=== PATIENT | male | born 1975 | race Caucasian/White ===

== ENCOUNTER 2023-08-02 23:17 | Emergency (ER) | payer OTHER, SELFPAY ==
[2023-08-02 23:19] VITALS: BP 216/124
[2023-08-03] VITALS: BP 145/90
--- NOTE | 2023-08-03 | ED.GENMED ---
History of Present Illness
General
Chief Complaint: Swelling
Source: patient
Exam Limitations: none
Time Seen by Provider: 08/02/23 23:34
Nursing documentation reviewed up to this point in time: agreed with
Travel History
Have you had any contact with someone who has COVID-19?: No
Do you have any symptoms of coronavirus? Fever > 100 degrees, chills, cough, shortness of breath, sore throat, loss of taste or smell, muscle aches, or headache?: No
History of Present Illness
History of Present Illness:
Pleasant 47-year-old male who presents with lymph node swelling in his left neck. Patient was seen by his primary care provider and a CAT scan was ordered last week. This was done at an outside radiology center. Patient states that the CAT scan
did not give any etiology of the lymph nodes in the neck and chest. Patient states that overnight the lymph nodes have gotten larger. He states that he has no difficulty breathing or swallowing. He has been eating and drinking normally. Denies
chest pain or shortness of breath. Reports no recent fevers or chills. Patient is a smoker.
Past History
Past History
ED Past Medical History: None
ED Past Surgical History: None
Social History
Tobacco: Smoker (1 ppd, past 20 years)
Alcohol: None
Drug: None
Employment: Employed
Review of Systems
Review of Systems
Allergies reviewed?: Yes
All Other Systems: ROS reviewed and negative except as documented in HPI and ROS
Hematologic/Lymphatic: Reports swollen glands and other (Lymphadenopathy in the cervical region)
Phy Exam
General Physical Exam
General Presentation: well appearing and no apparent distress
General Skin: warm and dry
General Habitus: normal
General Mental: alert
General Hydration: appears well hydrated
ENT Exam
ENT Exam: EOMI, pharynx normal, neck supple and normocephalic
Eye Exam
Eye Exam: PERRL, cornea clear and conjunctiva normal
Cardiovascular Exam
Cardiovascular Exam: regular rate/rhythm, no edema, no murmur and normal peripheral pulses
Pulmonary Exam
Pulmonary Exam: lungs clear, no respiratory distress, no rales, no crackles, no rhonchi, no stridor, no wheezing and no cough
Gastrointestinal Exam
Gastrointestinal Exam: normal bowel sounds, non tender, soft, no organomegaly, no pulsatile mass and non distended
Neurological Exam
Neurological Exam: alert, oriented x3, no motor deficits and speech normal
Musculoskeletal Exam
Musculoskeletal Exam: full ROM and no edema
Skin Exam
Skin Exam: normal color, warm/dry, no rash, no petechia and other (Cervical lymphadenopathy)
Psychiatric Exam
Psychiatric Exam: normal mood/affect
Scores
Heart Failure Risk
Heart Failure Risk Score: Not Applicable
Course
Orders/Labs/Results
Orders:
Orders
08/02/23 23:50
CRP [C-Reactive Protein] Urgent
Complete Blood Count/With Diff Urgent
Comprehensive Metabolic Panel Urgent
Sed Rate [Erythrocyte Sed Rate] Urgent
08/03/23 00:01
CR Chest - 2 Views Urgent
Reason For Exam: swelling
CR Soft Tissue Neck Urgent
Reason For Exam: neck swelling
Abnormal Lab Results
08/02/23
23:50
RBC 4.42 L 10^6/uL
(4.70-6.10)
MCH 32.6 H pg
(27.0-31.0)
Absolute Monos (auto) 0.7 H 10^3/uL
(0.1-0.6)
Glucose 113 H mg/dl
(70-99)
08/02/23 23:50
08/02/23 23:50
Vital Signs
Initial and Last Documented VS:
Initial Vital Signs
Temp Pulse Resp BP Pulse Ox
98.9 F 90 18 216/124 100
08/02/23 23:19 08/02/23 23:19 08/02/23 23:19 08/02/23 23:19 08/02/23 23:19
Last Documented Vital Signs
Temp Pulse Resp BP Pulse Ox
98.9 F 82 14 145/90 98
08/02/23 23:19 08/03/23 00:00 08/03/23 00:00 08/03/23 00:00 08/03/23 00:00
*Critical Care Note
Total Time (30-74mins, 75-104mins- exclusive of procedures): Not Applicable
Update Note
Update Note:
08/03/2023 0002 AM: Patient does not have access to his CT scan. At this point I do not feel that a repeat CT scan within 1 week's time for similar symptoms would be prudent. I feel the patient needs to follow-up with his family doctor and get the
next series of testing as defined by his family doctor. He denies any symptomatology stemming from the lymphadenopathy.
08/03/2023 0048 AM: Patient does not want to have a CT scan. He spoke with an aunt, who is a physician and they decided a repeat CT scan is too much radiation. His family doctor is in the process of getting approval for an MRI.
ED Attending Note
-
Portions of this chart may have been created with voice recognition software.� Occasional wrong word or��sound alike� substitutions may have occurred due to the inherent limitations of voice recognition software.
Discharge Plan
Departure
Patient Disposition: Home (Routine Discharge)
Date of Disposition: 08/03/23
Time of Disposition: 00:47
Patient with high blood pressure during this ER visit?: Yes
Discharge Problem:
Acute cervical lymphadenitis
Instructions: Lymphadenitis (DC)
Prescriptions:
No Action
amlodipine 10 mg Tablet
10 mg PO DAILY
lisinopril 10 mg Tablet
10 mg PO DAILY
Eliquis 5 mg Tablet
5 mg PO BID
Referrals:
Christina Granda MD [Family Provider] -
Activity Restrictions/Additional Instructions:
It was a pleasure meeting you and taking part in your care. We hope for your continued healing and wellness.
Please read discharge instructions in their entirety. However, they are for general education and may not describe your exact diagnosis at discharge. Information on your ER visit and medical conditions were discussed with you along with appropriate
follow up information...
If indicated, please take your medications as instructed and indicated on discharge paperwork.
Please schedule a follow up appointment as directed. Call to schedule an appointment
Please return to the emergency department with ANY change in, persisting, or worsening of symptoms. If any of your symptoms do not improve, or persist, or become more severe within 6-12 hours, please return to the emergency department for further
care.
Please return to the emergency department if you develop a headache, neck pain/stiffness, fever greater than 100.4F, chest pain, shortness of breath, persistent nausea, vomiting, slurred speech, difficulty walking, numbness/tingling, weakness, signs
of infection or any other symptoms that are worrisome to you.
or E-mail me directly at [email or web address]
Interventions
Interventions:
*Risk Screen - Suicide Last Done: 08/02/23 23:19
*General Assessment Last Done: 08/02/23 23:49
*Neglect/Abuse Screening Last Done: 08/02/23 23:19
*ED COVID-19 Vaccine History Last Done: 08/02/23 23:27
ED- Neurological Assessment Last Done: 08/02/23 23:52
ED- Pulmonary Assessment Last Done: 08/02/23 23:52
ED-Skin Assessment Last Done: 08/02/23 23:52
[2023-08-03 00:03] LABS: % Basophils 0.9 % (0-2); % Eosinophils 2.7 % (0-6); % Immature Granulocytes 0.3 % (0-0.5); % Lymphocytes 28.2 % (20.5-51.1); % Monocytes 7.5 % (1.7-9.3); % Neutrophils 60.4 % (42.2-75.2); Absolute Basophils 0.1 10^3/uL (0-0.2); Absolute Eosinophils 0.3 10^3/uL (0-0.7); Absolute Lymphocytes 2.6 10^3/uL (1.2-3.4); Absolute Monocytes 0.7 10^3/uL (0.1-0.6); Absolute Neutrophils 5.6 10^3/uL (1.4-6.5); Hematocrit 40.5 % (39.0-52.0); Hemoglobin 14.4 g/dL (13.0-18.0); Mean Corp Hgb Conc. 35.6 g/dL (33.0-37.0); Mean Corpuscular Hgb 32.6 pg (27.0-31.0); Mean Corpuscular Volume 91.6 fL (80.0-94.0); Mean Platelet Volume 10.2 fL (7.4-10.4); Nucleated Red Blood Cells % 0 % (-); Platelet Count 192 10^3/uL (130-400); Red Blood Cell Count 4.42 10^6/uL (4.70-6.10); Red Cell Dist. Width 13.1 % (11.5-14.5); White Blood Cell Count 9.3 10^3/uL (4.8-10.8)
[2023-08-03 00:09] LABS: Erythrocyte Sed Rate 6 mm/hour (0-20)
[2023-08-03 00:17] LABS: ALT (SGPT) 17 U/L (0-50); AST (SGOT) 20 U/L (17-59); Alkaline Phosphatase 61 U/L (38-126); Blood Urea Nitrogen 18 mg/dl (9-20); Calcium 9.6 mg/dl (8.4-10.2); Carbon Dioxide 28 mmol/L (22-30); Chloride 105 mmol/L (98-107); Estimated Creatinine Clearance > 125 ml/min; Glucose 113 mg/dl (70-99); Potassium 3.9 mmol/L (3.5-5.1); Sodium 141 mmol/L (135-145); Total Bilirubin 0.8 mg/dl (0.2-1.3); Total Protein 6.7 g/dl (6.3-8.2); eGFR > 60.00
== END 2023-08-03 00:55 | disposition home or self-care (01) ==
LOC: EMR 23:17
PROVIDERS: EMERGENCY PHYSICIAN Student in an Organized Health Care Education/Training Program; FAMILY PHYSICIAN Student in an Organized Health Care Education/Training Program
DX: L04.0 Acute lymphadenitis of face, head and neck (principal); F17.210 Nicotine dependence, cigarettes, uncomplicated; R03.0 Elevated blood-pressure reading, without diagnosis of hypertension
CPT/HCPCS: 99284; 70360; 71046; 80053; 85025; 85652; 86140

== ENCOUNTER 2025-06-13 19:52 | Inpatient (IN) | payer OTHER, SELFPAY ==
[2025-06-13] VITALS (17 sets, daily range): BP systolic 108–191; BP diastolic 58–128; BMI 32.8
[2025-06-13 18:15] LABS: Hematocrit 43.0 % (39.0-52.0); Hemoglobin 14.7 g/dL (13.0-18.0); Mean Corp Hgb Conc. 34.2 g/dL (33.0-37.0); Mean Corpuscular Volume 90.9 fL (80.0-94.0); Nucleated Red Blood Cells % 0 % (-); Platelet Count 229 10^3/uL (130-400); Red Cell Dist. Width 13.2 % (11.5-14.5)
[2025-06-13 18:31] LABS: ALT (SGPT) 17 U/L (0-50); AST (SGOT) 22 U/L (17-59); Albumin 4.2 g/dl (3.5-5.0); Alkaline Phosphatase 75 U/L (38-126); Blood Urea Nitrogen 14 mg/dl (9-20); Calcium 10.7 mg/dl (8.4-10.2); Carbon Dioxide 26 mmol/L (22-30); Chloride 105 mmol/L (98-107); Glucose 108 mg/dl (70-99); Potassium 3.8 mmol/L (3.5-5.1); Sodium 137 mmol/L (135-145); Total Protein 7.1 g/dl (6.3-8.2); eGFR > 60.00
--- NOTE | 2025-06-13 18:40 | ED.GENMED ---
History of Present Illness
<Giovanni Crowell PA-C - Last Filed: 06/13/25 21:48>
General
Chief Complaint: Chest Pain
Time Seen by Provider: 06/13/25 17:46
History of Present Illness
History of Present Illness:
48-year-old male history of DVT currently on Eliquis as well as hypertension presents to the emergency department for evaluation of chest pain for 5 days. Describes a pressure similar to indigestion in the central chest that worsens with exertion
and resolves rest. No obvious positional or pleuritic nature. No fevers, chills, sweats, coughing. Last dose of Eliquis was this morning. Smokes 2 packs/day.
Past History
<Giovanni Crowell PA-C - Last Filed: 06/13/25 21:48>
Past History
ED Past Medical History: None
ED Past Surgical History: None
Social History
Tobacco: Smoker (1 ppd, past 20 years)
Alcohol: None
Drug: None
Employment: Employed
Review of Systems
<Giovanni Crowell PA-C - Last Filed: 06/13/25 21:48>
Review of Systems
Allergies reviewed?: Yes
All Other Systems: ROS reviewed and negative except as documented in HPI and ROS
Phy Exam
<Giovanni Crowell PA-C - Last Filed: 06/13/25 21:48>
Physical Exam
Physical Exam:
GEN: Well appearing, NAD, WDWN
HEENT: Oral mucosa moist, no scleral icterus
Cardiac: Regular rate and rhythm, subtle systolic murmur
Lung: No respiratory distress, no tachypnea, lungs clear
MSK: No gross deformity or injuries
Skin: Good color, no pallor or jaundice, no rashes
Neuro: AO x3, moves all extremities freely
Psych: Calm, cooperative
Scores
<Giovanni Crowell PA-C - Last Filed: 06/13/25 21:48>
Heart Score for Chest Pain Patients
STEMI patient?: No
History: Moderately Suspicious
ECG: Nonspecific Repolarization
Age: >45 - <65 years
Risk Factors: 1 or 2 Risk Factors
Troponin: >/= 3 x Normal Limit
Heart Score for Chest Pain Patients: 6
Heart Score Risk: 20.3% MACE over next 6 weeks
Course
<Giovanni Crowell PA-C - Last Filed: 06/13/25 21:48>
Orders/Labs/Results
Orders:
Orders
06/13/25 Breakfast
Cholesterol Lowering
At Your Request: Full Participation
Cholesterol Lowering: Sodium, 2 Gram
06/13/25 17:11
EKG [Electrocardiogram (*1)] Urgent
Reason for Study: Chest Pain
EKG- Treatment ONCE
06/13/25 17:53
CR Chest - 2 Views Urgent
Comment:
Reason For Exam: chest pain
06/13/25 18:02
Complete Blood Count/With Diff Urgent
Comprehensive Metabolic Panel Urgent
Troponin I Urgent
06/13/25 18:49
Aspirin Chewable [Low Strength Aspirin] 324 mg PO NOW STA
06/13/25 19:01
Protime/PTT Urgent
06/13/25 19:03
Heparin 4,000 units IV NOW STA
Nicotine [Nicoderm Transdermal] 21 mg TRANSDERM NOW STA
Nursing to Place Non Medication Order As Directed
Physician Order: PTT 6 hours after initial start of Heparin infusion
Above order entered?: Yes
06/13/25 19:15
Heparin 70816 Units/250 ml 25,000 units in 250 ml IV PER PROTOCOL
Weight to be used for heparin protocol in kilograms (kg):: 107.4
Protocol:: Cardiac Tx/Acute Coronary
PTT Goal Range to be used:: PTT 73 to 111 seconds
Order type:: Initial
INITIAL Infusion Dose (UNITS/KG/hr) & then follow protocol:: 15 units/kg/hr
Infusion Dose in UNITS/hr & then follow protocol (UNITS/hr):: 1,500
INFUSION RATE in mL/hr & then follow protocol (mL/hr):: 15
PTT less than or equal to 64 seconds:: Increase rate by 200 units/hr (+ 2 mL/hr)
PTT 64.1 to 72.9 seconds:: Increase rate by 100 units/hr (+ 1 mL/hr)
PTT 73 to 111 seconds:: Target Range. No change in rate.
PTT 111.1 to 130.9 seconds:: Decrease rate by 100 units/hr (- 1 mL/hr)
PTT 131 to 199.9 seconds:: HOLD for 1 hr. Then decrease rate by 200 units/hr (- 2 mL/hr)
PTT greater than or equal to 200 seconds:: HOLD for 2 hrs & Notify Provider. Then decrease by 200 units/hr (-
2 mL/hr)
Lab follow-up:: Each change, PTT q6h until 2 consecutive are therapeutic. Then PTT
daily.
Nitroglycerin 100 mg/250 ml [Nitroglycerin Premix] 100 mg in 250 ml IV PER PROTOCOL
Initial dose in mcg/min, then titrate:: 25
Titrate to keep:: Chest Pain Free
Titrate by mcg/min:: 5 mcg/min, may increase by 10 mcg/min if dose > 20 mcg/min
Frequency of titrations (minutes):: every 3-5 minutes
Maximum dose in mcg/min:: 200
Begin to taper infusion when:: Remained at goal for 2hrs
Taper by mcg/min:: 5 mcg/min
Frequency of taper (minutes) if patient maintains goal:: 30
Taper to off?: Yes
If infusion off & no longer maintaining goal:: Contact Provider
06/13/25 19:18
Metoprolol [Lopressor] 12.5 mg PO NOW STA
06/13/25 19:31
Admit/Transfer Patient As Directed
Co-Sign Provider:
Level of Care: Inpatient admission
Assign to:: IVU
Physician / Group: Josué Dennis
Diagnosis: NSTEMI
Reason for Hospitalization: heparin, nitro
Expected length of stay greater than two midnights?: Yes
ELOS- Estimated Length of Stay in days: 3
I certify the patient meets the requirements for IP care: Yes
06/13/25 19:32
PRN Pain Medication Management As Directed
May give lesser potent ordered pain med per pt: Yes
preference::
Protocol:: Medication orders for pain may be administered in a
manner that supports deferring to patient preference
when the pt is:
- Requesting an ordered lesser potent pain medication.
Least to most potent pain medications are defined
as: acetaminophen < NSAID < tramadol < opioids
(morphine, oxycodone, hydromorphone).
- Requesting a lesser dose of the same medication IF
ORDERED.
- Requesting a less intrusive route of administration
if both routes are prescribed by the provider (PO <
IV).
06/13/25 19:33
Code Status As Directed
Resuscitation Status: Full Code
06/13/25 21:05
Acetaminophen [Tylenol] 650 mg PO Q4HPRN PRN
06/13/25 21:05
CARDIOLOGY CONSULT Routine
Consulting Provider: Denys Elizabeth
Was physician already notified: Yes
Heparin Protocol- PTT Orders As Directed
PTT per Heparin protocol: -Obtain CBC and baseline PTT - if not already collected.
-Obtain PTT 6 hours from start of infusion. Then, every 6 hours until 2 consecutive
PTT's are therapeutic. Then, PTT Daily.
-With each rate change, obtain PTT every 6 hours until 2 consecutive PTT's are
therapeutic. Then, PTT Daily.
Activity As Directed
Activity Level: Out of Bed- Chair
Notify MD As Directed
Notify physician if: PTT is greater than or equal to 200.
Vital Signs As Directed
Frequency: Per unit guidelines
Smoking Cessation Counseling [RESP] Routine
06/14/25 01:30
PTT Urgent
06/14/25 Breakfast
NPO
Allow oral meds: Yes
Allow clear liquids: 4hrs prior to procedure
Comment: may have unrestricted clear liquid up to 4 hrs prior to scheduled procedure
Basic Metabolic Panel IN AM
Complete Blood Count/No Diff IN AM
Hgba1c [Glycohemoglobin (HgbA1c)] IN AM
Lipid Profile [Cardiovascular Evaluation] IN AM
06/14/25 08:00
Amlodipine [Norvasc] 10 mg PO DAILY
Aspirin Chewable [Low Strength Aspirin] 81 mg PO DAILY
Lisinopril [Zestril] 10 mg PO DAILY
Nicotine [Nicoderm Transdermal] 21 mg TRANSDERM DAILY
06/15/25 06:00
Complete Blood Count/No Diff Q2D
Comment: notify provider: Platelet count < 130,000 or decrease by 50% from baseline
06/17/25 06:00
Complete Blood Count/No Diff Q2D
Comment: notify provider: Platelet count < 130,000 or decrease by 50% from baseline
06/19/25 06:00
Complete Blood Count/No Diff Q2D
Comment: notify provider: Platelet count < 130,000 or decrease by 50% from baseline
06/21/25 06:00
Complete Blood Count/No Diff Q2D
Comment: notify provider: Platelet count < 130,000 or decrease by 50% from baseline
06/23/25 06:00
Complete Blood Count/No Diff Q2D
Comment: notify provider: Platelet count < 130,000 or decrease by 50% from baseline
06/25/25 06:00
Complete Blood Count/No Diff Q2D
Comment: notify provider: Platelet count < 130,000 or decrease by 50% from baseline
06/27/25 06:00
Complete Blood Count/No Diff Q2D
Comment: notify provider: Platelet count < 130,000 or decrease by 50% from baseline
06/29/25 06:00
Complete Blood Count/No Diff Q2D
Comment: notify provider: Platelet count < 130,000 or decrease by 50% from baseline
Abnormal Lab Results
06/13/25
18:02
MCH 31.1 H pg
(27.0-31.0)
MPV 10.9 H fL
(7.4-10.4)
Absolute Lymphs (auto) 3.5 H 10^3/uL
(1.2-3.4)
Absolute Monos (auto) 0.7 H 10^3/uL
(0.1-0.6)
Glucose 108 H mg/dl
(70-99)
Calcium 10.7 H mg/dl
(8.4-10.2)
Troponin I 0.412 H* ng/ml
06/13/25 18:02
06/13/25 18:02
Vital Signs
Initial and Last Documented VS:
Initial Vital Signs
Temp Pulse Resp BP Pulse Ox
98.1 F 107 20 191/121 96
06/13/25 17:15 06/13/25 17:15 06/13/25 17:15 06/13/25 17:15 06/13/25 17:15
Last Documented Vital Signs
Temp Pulse Resp BP Pulse Ox
98.1 F 94 13 153/109 96
06/13/25 17:15 06/13/25 20:20 06/13/25 20:20 06/13/25 20:20 06/13/25 20:20
<Alvin Noh, MD - Last Filed: 06/13/25 19:30>
Orders/Labs/Results
Orders:
Orders
06/13/25 Breakfast
Cholesterol Lowering
At Your Request: Full Participation
Cholesterol Lowering: Sodium, 2 Gram
06/13/25 17:11
EKG [Electrocardiogram (*1)] Urgent
Reason for Study: Chest Pain
EKG- Treatment ONCE
06/13/25 17:53
CR Chest - 2 Views Urgent
Comment:
Reason For Exam: chest pain
06/13/25 18:02
Complete Blood Count/With Diff Urgent
Comprehensive Metabolic Panel Urgent
Troponin I Urgent
06/13/25 18:49
Aspirin Chewable [Low Strength Aspirin] 324 mg PO NOW STA
06/13/25 19:01
Protime/PTT Urgent
06/13/25 19:03
Heparin 4,000 units IV NOW STA
Nicotine [Nicoderm Transdermal] 21 mg TRANSDERM NOW STA
Nursing to Place Non Medication Order As Directed
Physician Order: PTT 6 hours after initial start of Heparin infusion
Above order entered?: Yes
06/13/25 19:15
Heparin 66208 Units/250 ml 25,000 units in 250 ml IV PER PROTOCOL
Weight to be used for heparin protocol in kilograms (kg):: 107.4
Protocol:: Cardiac Tx/Acute Coronary
PTT Goal Range to be used:: PTT 73 to 111 seconds
Order type:: Initial
INITIAL Infusion Dose (UNITS/KG/hr) & then follow protocol:: 15 units/kg/hr
Infusion Dose in UNITS/hr & then follow protocol (UNITS/hr):: 1,500
INFUSION RATE in mL/hr & then follow protocol (mL/hr):: 15
PTT less than or equal to 64 seconds:: Increase rate by 200 units/hr (+ 2 mL/hr)
PTT 64.1 to 72.9 seconds:: Increase rate by 100 units/hr (+ 1 mL/hr)
PTT 73 to 111 seconds:: Target Range. No change in rate.
PTT 111.1 to 130.9 seconds:: Decrease rate by 100 units/hr (- 1 mL/hr)
PTT 131 to 199.9 seconds:: HOLD for 1 hr. Then decrease rate by 200 units/hr (- 2 mL/hr)
PTT greater than or equal to 200 seconds:: HOLD for 2 hrs & Notify Provider. Then decrease by 200 units/hr (-
2 mL/hr)
Lab follow-up:: Each change, PTT q6h until 2 consecutive are therapeutic. Then PTT
daily.
Nitroglycerin 100 mg/250 ml [Nitroglycerin Premix] 100 mg in 250 ml IV PER PROTOCOL
Initial dose in mcg/min, then titrate:: 25
Titrate to keep:: Chest Pain Free
Titrate by mcg/min:: 5 mcg/min, may increase by 10 mcg/min if dose > 20 mcg/min
Frequency of titrations (minutes):: every 3-5 minutes
Maximum dose in mcg/min:: 200
Begin to taper infusion when:: Remained at goal for 2hrs
Taper by mcg/min:: 5 mcg/min
Frequency of taper (minutes) if patient maintains goal:: 30
Taper to off?: Yes
If infusion off & no longer maintaining goal:: Contact Provider
06/13/25 19:18
Metoprolol [Lopressor] 12.5 mg PO NOW STA
06/13/25 19:31
Admit/Transfer Patient As Directed
Co-Sign Provider:
Level of Care: Inpatient admission
Assign to:: IVU
Physician / Group: Josué Dennis
Diagnosis: NSTEMI
Reason for Hospitalization: heparin, nitro
Expected length of stay greater than two midnights?: Yes
ELOS- Estimated Length of Stay in days: 3
I certify the patient meets the requirements for IP care: Yes
06/13/25 19:32
PRN Pain Medication Management As Directed
May give lesser potent ordered pain med per pt: Yes
preference::
Protocol:: Medication orders for pain may be administered in a
manner that supports deferring to patient preference
when the pt is:
- Requesting an ordered lesser potent pain medication.
Least to most potent pain medications are defined
as: acetaminophen < NSAID < tramadol < opioids
(morphine, oxycodone, hydromorphone).
- Requesting a lesser dose of the same medication IF
ORDERED.
- Requesting a less intrusive route of administration
if both routes are prescribed by the provider (PO <
IV).
06/13/25 19:33
Code Status As Directed
Resuscitation Status: Full Code
06/13/25 21:05
Acetaminophen [Tylenol] 650 mg PO Q4HPRN PRN
06/13/25 21:05
CARDIOLOGY CONSULT Routine
Consulting Provider: Denys Elizabeth
Was physician already notified: Yes
Heparin Protocol- PTT Orders As Directed
PTT per Heparin protocol: -Obtain CBC and baseline PTT - if not already collected.
-Obtain PTT 6 hours from start of infusion. Then, every 6 hours until 2 consecutive
PTT's are therapeutic. Then, PTT Daily.
-With each rate change, obtain PTT every 6 hours until 2 consecutive PTT's are
therapeutic. Then, PTT Daily.
Activity As Directed
Activity Level: Out of Bed- Chair
Notify MD As Directed
Notify physician if: PTT is greater than or equal to 200.
Vital Signs As Directed
Frequency: Per unit guidelines
Smoking Cessation Counseling [RESP] Routine
06/14/25 01:30
PTT Urgent
06/14/25 Breakfast
NPO
Allow oral meds: Yes
Allow clear liquids: 4hrs prior to procedure
Comment: may have unrestricted clear liquid up to 4 hrs prior to scheduled procedure
Basic Metabolic Panel IN AM
Complete Blood Count/No Diff IN AM
Hgba1c [Glycohemoglobin (HgbA1c)] IN AM
Lipid Profile [Cardiovascular Evaluation] IN AM
06/14/25 08:00
Amlodipine [Norvasc] 10 mg PO DAILY
Aspirin Chewable [Low Strength Aspirin] 81 mg PO DAILY
Lisinopril [Zestril] 10 mg PO DAILY
Nicotine [Nicoderm Transdermal] 21 mg TRANSDERM DAILY
06/15/25 06:00
Complete Blood Count/No Diff Q2D
Comment: notify provider: Platelet count < 130,000 or decrease by 50% from baseline
06/17/25 06:00
Complete Blood Count/No Diff Q2D
Comment: notify provider: Platelet count < 130,000 or decrease by 50% from baseline
06/19/25 06:00
Complete Blood Count/No Diff Q2D
Comment: notify provider: Platelet count < 130,000 or decrease by 50% from baseline
06/21/25 06:00
Complete Blood Count/No Diff Q2D
Comment: notify provider: Platelet count < 130,000 or decrease by 50% from baseline
06/23/25 06:00
Complete Blood Count/No Diff Q2D
Comment: notify provider: Platelet count < 130,000 or decrease by 50% from baseline
06/25/25 06:00
Complete Blood Count/No Diff Q2D
Comment: notify provider: Platelet count < 130,000 or decrease by 50% from baseline
06/27/25 06:00
Complete Blood Count/No Diff Q2D
Comment: notify provider: Platelet count < 130,000 or decrease by 50% from baseline
06/29/25 06:00
Complete Blood Count/No Diff Q2D
Comment: notify provider: Platelet count < 130,000 or decrease by 50% from baseline
Abnormal Lab Results
06/13/25
18:02
MCH 31.1 H pg
(27.0-31.0)
MPV 10.9 H fL
(7.4-10.4)
Absolute Lymphs (auto) 3.5 H 10^3/uL
(1.2-3.4)
Absolute Monos (auto) 0.7 H 10^3/uL
(0.1-0.6)
Glucose 108 H mg/dl
(70-99)
Calcium 10.7 H mg/dl
(8.4-10.2)
Troponin I 0.412 H* ng/ml
06/13/25 18:02
06/13/25 18:02
Vital Signs
Initial and Last Documented VS:
Initial Vital Signs
Temp Pulse Resp BP Pulse Ox
98.1 F 107 20 191/121 96
06/13/25 17:15 06/13/25 17:15 06/13/25 17:15 06/13/25 17:15 06/13/25 17:15
Last Documented Vital Signs
Temp Pulse Resp BP Pulse Ox
98.1 F 94 13 153/109 96
06/13/25 17:15 06/13/25 20:20 06/13/25 20:20 06/13/25 20:20 06/13/25 20:20
<Giovanni Crowell PA-C - Last Filed: 06/13/25 21:48>
MDM/Problems Addressed
MDM/Problems Addressed:
Patient admitted to the hospitalist service for NSTEMI with markedly elevated troponin. He did have some degree of chest discomfort. Concern. Case discussed with cardiology, heparinization in addition to beta-moody.
<Giovanni Crowell PA-C - Last Filed: 06/13/25 21:48>
Comment
Comment:
EKG independently shows normal sinus rhythm with subtle ST depressions but no overt ST changes otherwise
*Pulse Oximetry
SaO2: 96
Oxygen Mode of Delivery: Room air
Patient hypoxic: no
*Critical Care Note
Total Time (30-74mins, 75-104mins- exclusive of procedures): 35 minutes
comment:
Critical care time: 35 minutes
Critical care time was exclusive of: Separately billable procedures, treating other patients, and teaching time
Critical care was necessary to treat or prevent imminent or life-threatening deterioration of the following conditions: NSTEMI
Critical care time spent personally by me on the following activities:
[x] Review of old charts
[x] Obtaining history from patient or surrogate
[x] Ordering and review of the laboratory studies
[x] Ordering and review of radiographic studies
[x] Ordering and performing treatments and interventions
[x] Patient patient's response to treatment
[x] Development of treatment plan with patient or surrogate
ED Attending Note
<Giovanni Crowell PA-C - Last Filed: 06/13/25 21:48>
-
Portions of this chart may have been created with voice recognition software.� Occasional wrong word or��sound alike� substitutions may have occurred due to the inherent limitations of voice recognition software.
<Alvin Matthews MD - Last Filed: 06/13/25 19:30>
ED Attending Note
Patient seen and examined by attending physician: Yes
ED Attending Note:
Patient with history of hypertension and currently on Eliquis secondary to multiple lower leg DVT, daily smoker, presents to ED secondary to 4-day history of intermittent chest pain. Chest pain started 4 days ago with burning sensation in middle of
chest, which has been intermittent. Today, while he was at work, chest pain became more intense, associated with left forearm and hand tingling sensation. Chest pain described as burning/sharp, nonradiating, without any alleviating or exacerbating
factors. Denies back pain. Denies leg pain or swelling. Denies recent illness. Denies previous history of similar symptoms. Patient unaware of any family history of heart disease.
Physical Exam
General: mild distress, not acutely ill. afebrile
Head: nc/at. eomi
Neck: supple. normal range of motion
Heart: s1/s2 regular rate and rhythm. no murmur
Lungs: no acute respiratory distress. clear bilaterally
Abdomen: normal bowel sounds. not tender.
Neuro: alert and oriented x 3. no focal neurological deficits
Skin: no rash
Psychiatric: well kept. interactive and cooperative
Extremities: no edema. no calf tenderness.
History, exam, and blood work consistent with likely non-STEMI. Patient will be admitted for further eval and treatment. Heparin protocol started. Nitroglycerin infusion will be started for blood pressure control as well as patient's ongoing
chest pain.
On-call cardiology notified via [place] text.
Discharge Plan
Departure
Patient Disposition: Admit
Date of Disposition: 06/13/25
Time of Disposition: 19:07
Admit to: IVU
Presentation/result/management discussed w/ accepting MD/DO: Hospitalist
Discharge Problem:
Non-ST elevation ME (NSTEMI)
Interventions
Interventions:
*Risk Screen - Suicide Last Done: 06/13/25 18:04
*General Assessment Last Done: 06/13/25 17:15
*Neglect/Abuse Screening Last Done: 06/13/25 18:04
*ED COVID-19 Vaccine History Last Done: 06/13/25 17:43
*ED Influenza Vaccine History Last Done: 06/13/25 17:43
[facility] Fall Risk Assessment Tool Last Done: 06/13/25 18:04
*Nursing Disposition Last Done: 06/13/25 20:28
ED- Cardiac Assessment Last Done: 06/13/25 18:04
Discharge Date and Time
Discharge Date/Time: 06/13/25 20:29
[2025-06-13 18:48] LABS: Troponin I 0.412 ng/ml
[2025-06-13] MEDS: LOW STRENGTH ASPIRIN 324 MG PO (18:56)
--- NOTE | 2025-06-13 19:09 | HPS.HSE ---
Addendum entered and electronically signed by Josué Dennis MD 06/13/25 20:15:
49 male history of DVT on Eliquis presented with substernal chest discomfort that initially started 45 days ago described as indigestion however progressively got worse. He woke up this morning noted to chest discomfort with associated left finger
numbness that improved on its own however when he went to work started ambulating and doing more strenuous activity and noted that discomfort again and then presented to the hospital. Should be noted that he does smoke 2 packs of cigarettes daily.
He drinks alcohol occasionally.
NSTEMI
Trend troponin to peak
2D echo
N.p.o. after midnight
Heparin drip
Left heart catheterization
Hypertension
Continue antihypertensive
DVT history this was approximately 2 to 10 years ago. Unclear as to why he remained on anticoagulation this may need to be discussed with cardiology as this could potentially affect ongoing DAPT therapy if PCI completed
Continue apixaban 5 mg p.o. twice daily
Original Note:
Family Physician
-
Family Physician: Christina Granda MD
Chief Complaint
-
Chest Pain
History of Present Illness
Patient is a 49 y/o male past medical history of DVT and hypertension who presents with chest pain. Patient reports onset of pain about 4-5 days ago described as a sharp pain associated with tingling down the left arm. Patient reports pain is worse
with exertion and improves with rest. He denies prior history of heart attack. He admits to smoking about 2 packs of cigarettes per day.
Medical History
Past Medical History
Past Medical History: Reports Other
Additional Past Medical History:
Essential Hypertension
DVT
Past Surgical History: Reports None
Social History
Tobacco: Smoker (2 PPD)
Alcohol: Occasional
Family History
Family History: Other (Unknown; Patient denies any known history of heart disease but states he does not know his father)
Allergies / Home Medications
Allergies reflects when Allergies were last updated in [facility].
Home Medications with original date entered in [facility]
Allergy/Medication List:
Allergies
Allergy/AdvReac Type Severity Reaction Status Date / Time
Penicillins Allergy Unknown Verified 06/13/25 17:15
Home Medications
amlodipine 10 mg tablet 10 mg PO DAILY 08/02/23
apixaban 5 mg tablet (Eliquis) 5 mg PO BID 08/02/23
lisinopril 10 mg tablet 10 mg PO DAILY 08/02/23
Review of Systems
-
A 12 point ROS was completed and negative except as noted: Yes
Constitutional: Denies Fever
Respiratory: Denies Cough or Trouble Breathing
Cardiac: Reports Chest Pain; Denies Palpitations
Physical Exam
Vital Signs
Vital Signs
Temp Pulse Resp BP Pulse Ox
98.1 F 79 14 147/94 97
06/13/25 17:15 06/13/25 18:45 06/13/25 18:45 06/13/25 18:42 06/13/25 18:45
Physical Exam
General: Comfortable and Conversant
HEENT: Anicteric and Moist mucous membranes
Respiratory: Clear and Non Labored Respirations
Cardiac: S1/S2 and Regular Rhythm
GI: Soft and Non Distended
Rectal: Deferred by Provider
Musculoskeletal: No Clubbing, No Cyanosis and No Edema
Skin: Warm and Dry
Neuro: Awake, Alert, Oriented and Nonfocal/grossly intact
Psych: Calm
Laboratory Results
-
06/13/25 18:02
06/13/25 18:02
Laboratory Results
Total Bilirubin 0.4 mg/dl (0.2-1.3) 06/13/25 18:02
AST 22 U/L (17-59) 06/13/25 18:02
ALT 17 U/L (0-50) 06/13/25 18:02
Alkaline Phosphatase 75 U/L (38-126) 06/13/25 18:02
Troponin I 0.412 ng/ml H* 06/13/25 18:02
Data Reviewed
-
Lab Data: Labs Reviewed by me
Impression/Plan
-
NSTEMI
-Consult Cardiology
-Patient received aspirin 324mg in ED - Continue 81mg Daily
-Continue heparin drip
-Continue nitro drip
-NPO after midnight for likely cardiac cath in AM
-Check Lipid Panel and HgbA1c
Essential Hypertension, BP uncontrolled
-Continue amlodipine and lisinopril
-Continue nitro drip
Hx DVT
-Patient reports lower extremity DVT 2 years ago which he reports was unprovoked
-Hold Eliquis while on heparin drip
Tobacco Use Disorder / Nicotine Dependence
-Continue nicotine patch
-Encourage smoking cessation
Code Status: Full Code
[2025-06-13] MEDS: NITROGLYCERIN PREMIX 250 IV (19:17)
[2025-06-13 19:19] LABS: INR 1.02; PT 13.5 Sec (11.4-14.6)
[2025-06-13 19:20] LABS: APTT 25.4 Sec (23.4-35.0)
[2025-06-13] MEDS: HEPARIN 4000 UNITS IV (19:29)
[2025-06-13] MEDS: HEPARIN 25000 UNITS/250 ML IV (19:30)
[2025-06-13] MEDS: NICODERM TRANSDERMAL 21 MG TRANSDERM (19:39)
[2025-06-13] MEDS: LOPRESSOR 12.5 MG PO (19:40)
[2025-06-13] MEDS: XANAX 0.25 MG PO (22:59)
[2025-06-14] VITALS (11 sets, daily range): BP systolic 107–149; BP diastolic 64–103
[2025-06-14] MEDS: TYLENOL 650 MG PO (00:56)
--- NOTE | 2025-06-14 01:00 | PTCARENOTE ---
Pt rec'd from ED via stretcher at 2034. Adm hx taken and recorded. Heparin and ntg gtt infusing via right arm. CP 1 out of 10 dull. Pt educated on npo status after mn for cath in am. medicated with Tylenol at this time for c/o h/a 4 out of 10. Sinus
nahomy on telemetry
[2025-06-14 01:21] LABS: APTT 51.1 Sec (23.4-35.0)
[2025-06-14 01:32] LABS: Troponin I 2.070 ng/ml
--- NOTE | 2025-06-14 07:39 | CON.CAR ---
Addendum entered and electronically signed by Dena Vale MD 06/14/25 10:55:
I saw and examined the patient.
The Water Registrar's note was reviewed and I agree with the note.
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
ongoing chest discomfort progressively worsening found to have a troponin of 2 concerning for a NSTEMI. No family history of premature coronary artery disease. 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 In regards to the DVTs undergone previous
hematologic workup with no clear explanation for an unprovoked DVT and therefore plan is for lifelong Eliquis. His last dose of Eliquis was yesterday morning. He has now been chest pain-free on IV heparin and 25 mcg of IV nitroglycerin. No
bleeding complications while on the Eliquis.
Lab work and vital signs reviewed. On exam patient is well-appearing, in no acute distress, awake, alert and oriented x 3, somewhat anxious, regular rate, normal S1 and S2, no murmurs, rubs or gallops, mild JVD, lungs are clear to auscultation
bilaterally, abdomen is soft, nontender, nondistended with active bowel sounds, warm extremities without significant edema, morbid obesity is noted
Recommendations:
1. In the setting of an acute coronary syndrome/NSTEMI, we discussed the role of heart catheterization reviewing the risk and benefits in significant detail to rule out obstructive CAD. Patient is agreeable so the plan is to move forward with this.
2. In the interim we will continue with optimization of medical therapy from an ACS standpoint ensuring that he is on a daily baby aspirin, high intensity statin, beta-moody as tolerated, continuing home amlodipine and lisinopril for hypertension.
3. Echocardiogram was completed this morning and reviewed by myself which showed normal biventricular function without significant valvular abnormalities or clear wall motion abnormalities..
4. Risk factor assessment including lipids and hemoglobin A1c with aggressive management.
5. Very strongly emphasized importance of complete smoking cessation.
6. In general recommended that he focus on a high-fiber Mediterranean type diet and staying active.
7. Further recommendations based on heart catheterization and probable referral for outpatient cardiac rehab
Dena Vale MD, [facility], [facility]
[phone]
Original Note:
Consultation
Consultation Request
Date/Time Consultation Performed: 06/14/25
Requesting Provider: Dr. Alec Dennis
Performing Provider: Sherry Palmer PA-C for Dr. Vale
Reason for Consultation: NSTEMI
Medical History
-
Chief Complaint: CP
History of Present Illness:
Patient is a 49 yo M with PMH of HTN, DVT on chronic eliquis who presented to [facility] for evaluation of chest discomfort which he has noted over the last 4-5 days. He reports it is located in central chest, however then had occasional tingling into L
arm/hand. No radiation otherwise. No SOB, lightheadedness, N/V. It has been fairly constant, however does believe that it is relieved with resting at times, worsened with exertion. He continues to smoke 2 ppd. He is currently CP free on IV heparin
and IV nitro. Trop elevated at 2. Cardiology consulted for evaluation. Last dose of eliquis was 12/9 AM.
PMH:
HTN
History of DVT on eliquis
Smoker
Past Medical History
Past Medical History: Other (in HPI)
Social History
Tobacco: Smoker (2 ppd)
Alcohol: None
Drug: None
Living: With Roomate
Employment: Employed
Family History
Family History: Reviewed & Not Pertinent
Allergies / Home Medications
Allergy/AdvReac Type Severity Reaction Status Date / Time
Penicillins Allergy Unknown Verified 06/13/25 17:15
�Medication �Instructions �Recorded �Confirmed �Type
amlodipine 10 mg tablet 10 mg PO DAILY 08/02/23 06/13/25 History
apixaban 5 mg tablet (Eliquis) 5 mg PO BID 08/02/23 06/13/25 History
lisinopril 10 mg tablet 10 mg PO DAILY 08/02/23 06/13/25 History
Review of Systems
-
History Source: Patient
All other systems: Negative unless noted
Physical Exam
Vital Signs
Temp Pulse Resp BP Pulse Ox
98.8 F 58 20 107/64 94
06/13/25 22:25 06/14/25 06:30 06/13/25 22:25 06/14/25 00:47 06/14/25 00:50
Lab Results
Troponin I 2.070 ng/ml H* D 06/14/25 00:53
Physical Exam
General: No Apparent Distress and Comfortable
HEENT: Normocephalic, Anicteric and Moist Mucous Membranes
Respiratory: Clear and Non Labored Respirations
Cardiac: S1/S2 and Regular Rhythm
GI: Soft, Non Tender, Non Distended and Normal Bowel Sounds
Musculoskeletal: No Clubbing, No Cyanosis and No Edema
Skin: Warm and Dry
Neuro: AO x 3
Impression / Plan
-
Primary Director Quality Systems: none prior to admission
Assessment:
Presentation with CP
NSTEMI
HTN
History of DVT on eliquis
Smoker
ECHO 06/14/25: pending
Plan:
-Patient presented with several days of chest discomfort. has ruled in for NSTEMI overnight, trop up to 2, trend to peak
-EKG SR with NSSTS
-CXR without acute abnormalities
-presently chest pain free on IV heparin and IV nitro gtt @25.
-NPO for cardiac cath today. reviewed procedure with patient in detail and he is agreeable to proceed. last dose of eliquis was 12/9AM.
-check urgent echo
-continue asa
-continues on OP norvasc, lisinopril.
-CVE pending. add lipitor 40mg QPM
-advised smoking cessation
-further recommendations based on results of echo and cath
-d/w nursing
Data Reviewed
-
EKG: Tracing Personally Visualized and interpreted
Radiology: Report Reviewed by me
Labs: Labs Reviewed by me
Old Records: Reviewed
[2025-06-14 07:57] LABS: Hematocrit 40.2 % (39.0-52.0); Hemoglobin 13.6 g/dL (13.0-18.0); Mean Corp Hgb Conc. 33.8 g/dL (33.0-37.0); Mean Corpuscular Volume 90.5 fL (80.0-94.0); Platelet Count 196 10^3/uL (130-400); Red Cell Dist. Width 13.3 % (11.5-14.5)
[2025-06-14 08:07] LABS: APTT 44.5 Sec (23.4-35.0)
[2025-06-14 08:21] LABS: Troponin I 2.210 ng/ml
[2025-06-14] MEDS: LOW STRENGTH ASPIRIN 81 MG PO (08:23)
[2025-06-14] MEDS: NICODERM TRANSDERMAL 21 MG TRANSDERM (08:23)
[2025-06-14] MEDS: NORVASC 10 MG PO (08:23)
[2025-06-14] MEDS: ZESTRIL 10 MG PO (08:23)
[2025-06-14 08:34] LABS: Blood Urea Nitrogen 14 mg/dl (9-20); Calcium 9.0 mg/dl (8.4-10.2); Carbon Dioxide 24 mmol/L (22-30); Chloride 108 mmol/L (98-107); Estimated Creatinine Clearance > 125 ml/min; Glucose 101 mg/dl (70-99); HDL Cholesterol 42 mg/dl; LDL Cholesterol, Calculated 135 mg/dl; Potassium 4.2 mmol/L (3.5-5.1); Sodium 137 mmol/L (135-145); Very Low Density Lipoprotein 20 mg/dl (0-30); eGFR > 60.00
--- NOTE | 2025-06-14 09:03 | W.PN.HOSP.TC ---
Today's Communication/Plan
-
.
Assessment / Plan
Assessment / Plan
Physical Exam
General: Comfortable and Conversant
HEENT: Anicteric and Moist mucous membranes
Respiratory: Clear and Non Labored Respirations
Cardiac: S1/S2 and Regular Rhythm
GI: Soft and Non Distended
Rectal: Deferred by Provider
Musculoskeletal: No Clubbing, No Cyanosis and No Edema
Skin: Warm and Dry
Neuro: Awake, Alert, Oriented and Nonfocal/grossly intact
Psych: Calm
NSTEMI
No chest pain over night
-Patient received aspirin 324mg in ED - Continue 81mg Daily. EKG no acute ischemic changes.
-Continue heparin drip
-Continue nitro drip
-NPO after midnight for likely cardiac cath today
- LDL 135/ HDL 42/ Total cholesterol 197/ TG 101,
Started on statin therapy
- HgbA1c
- Appreciate cardiology help
Essential Hypertension, BP uncontrolled
-Continue amlodipine and lisinopril
-Continue nitro drip
Leukocytosis, no fever or cough
CXR: No evidence of active cardiopulmonary disease.
c/w reactive
Hx DVT
-Patient reports lower extremity DVT 2 years ago which he reports was unprovoked
-Hold Eliquis while on heparin drip
Tobacco Use Disorder / Nicotine Dependence
-Continue nicotine patch
-Encourage smoking cessation
Code Status: Full Code
Total time spent to see the patient, examined the patient, reviewed data and lab result, discuss treatment plan with patient, cardiology, nursing staff around 55 minutes
Anticipated Discharge: 24 - 48 hours
Subjective/Interval History
-
Date of Service: June 14, 2025
no chest pin
no sob
Objective Data
-
Labs:
Laboratory Results
06/14/25 06/14/25 06/14/25
00:53 07:45 14:30
WBC 11.2 H
Hgb 13.6
Hct 40.2
Plt Count 196
APTT 51.1 H 44.5 H Pending
Sodium 137
Potassium 4.2
Chloride 108 H
Carbon Dioxide 24
BUN 14
Creatinine 0.8
Glucose 101 H
Calcium 9.0 D
Vital Signs:
Vital Signs
Temp Pulse Resp BP Pulse Ox
98.1 F 84 20 130/82 97
06/14/25 07:47 06/14/25 08:23 06/14/25 07:47 06/14/25 08:23 06/14/25 07:47
I&O
06/13/25 06/14/25 06/15/25
06:59 06:59 06:59
Intake Total 240 / 240
Balance 240 / 240
[2025-06-14] MEDS: HEPARIN 25000 UNITS/250 ML IV (09:26)
--- NOTE | 2025-06-14 10:10 | PTCARENOTE ---
Pt is AOx3, no complaints of pain or discomfort. 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 Pt went for ECHO this AM. Heparin gtt and nitro gtt infusing per orders. Independent OOB. Call zuleta within reach.
[2025-06-14 11:28] LABS: ACT-LR - POC 224 Seconds (116-155)
[2025-06-14 11:38] LABS: ACT-LR - POC 274 Seconds (116-155)
[2025-06-14 11:53] LABS: ACT-LR - POC 327 Seconds (116-155)
[2025-06-14 12:09] LABS: ACT-LR - POC 258 Seconds (116-155)
--- NOTE | 2025-06-14 12:37 | PTCARENOTE ---
received pt back from produce laborer. no complaints of pain or discomfort. Right radial site CDI, + pulse. VSS. Pt educated on restrictions and expected OOB time. Call zuleta within reach.
--- NOTE | 2025-06-14 12:37 | ITS.CL.CATH ---
Pumper Gauger - Catheterization
Cardiac Catheterization
Procedure Report:
LEFT HEART CATHETERIZATION
Date of Procedure: June 14, 2025
Referring: Dena Vale MD, [facility], [facility]
PROCEDURES:
1. Left heart catheterization, coronary angiogram.
2. Moderate sedation.
3. Successful percutaneous coronary artery intervention of a 90% hazy mid left circumflex stenosis with one 3.0 x 18 mm Medtronic Artur frontier drug-eluting stent, postdilated using IVUS guidance with a 3.25 x 15 mm NC balloon at high pressures
with an excellent angiographic result.
4. Intravascular ultrasound (IVUS)
INDICATION: NSTEMI
ACCESS: Right radial artery, 6Fr. sheath, under US guidance.
HEMODYNAMICS : (mmHg)
AO (s/d) : 131/79
LVEDP : 20
CORONARY FINDINGS
Dominance: Right
Left Main Trunk (LMT): Large caliber vessel that gives rise to the LAD and LCx branches and is free of angiographic disease.
Left Anterior Descending Artery (LAD): Large caliber vessel that gives off 2 major diagonal branches as it courses along the anterior inter-ventricular groove before wrapping around the cardiac apex. There is mild diffuse atherosclerotic plaque.
Left Circumflex Artery (LCx): Large caliber vessel that gives off 1 major obtuse marginal (OM) branch as it courses along the atrio-ventricular (AV) groove. Mid left circumflex just prior to the takeoff of a large left posterolateral branch has a
hazy 90% stenosis which was intervened upon as noted below. Otherwise there is mild diffuse atherosclerotic plaque. OM1 is a very small caliber vessel with ostial 30% stenosis
Right Coronary Artery (RCA): Large caliber dominant vessel that gives rise to the posterior descending artery (RPDA) and postero-lateral ventricular (RPLV) branches distally. There is mild diffuse atherosclerotic plaque
CORONARY INTERVENTION: In the setting of an NSTEMI decision was made to proceed with the likely culprit lesion which is still 90% hazy mid left circumflex stenosis. Additional heparin was given to maintain a therapeutic ACT throughout the case.
Given poor guide support with a 6 [place] EBU 3.5 guide especially due to a possible bovine arch, we switched this out with a 6 [place] EBU 3.75 guide which was still somewhat difficult to selectively engage but we eventually succeeded. Through this
we used a 190 cm 0.014' run-through coronary wire which we carefully navigated across the mid left circumflex stenosis into the distal vessel. We predilated using a 2.5 x 15 mm semicompliant balloon with full expansion. Patient did report
reproduction of his chest discomfort symptoms from the last couple of days while we were working here. We subsequently stented the lesion using a 3.5 x 18 mm Medtronic Artur frontier drug-eluting stent which was postdilated using IVUS guidance with
a 3.25 x 15 mm NC balloon at 18 jona with an excellent angiographic and IVUS based result. Patient tolerated the procedure well and was chest pain free at the end of the case. No acute complications. Given need for lifelong Eliquis due to an
unprovoked DVT history, decision was made despite the NSTEMI to load with 600 mg of Plavix.
SEDATION: 47 minutes of procedural sedation was utilized. IV Midazolam and IV Fentanyl were administered. An independent medical diagnostic radiographer was present to assist with and help manage the patient's level of consciousness and physiologic status.
RADIATION SUMMARY: Fluoro Time (min): 8.0, Dose (mGy): 1022.56, DAP (Gy.cm2) : 66.8
Closure Device: There were no immediate intra-procedural complications. The sheath was pulled in the slab tripper and a vascular-band applied to the right wrist for radial artery hemostasis using the patent hemostasis technique.
CONCLUSIONS
1. Successful percutaneous coronary artery intervention of a 90% hazy mid left circumflex stenosis with one 3.0 x 18 mm Medtronic Artur frontier drug-eluting stent, postdilated using IVUS guidance with a 3.25 x 15 mm NC balloon at high pressures with
an excellent angiographic result.
2. LVEDP of 20 mmHg
RECOMMENDATIONS
1. Wean radial band per protocol. Monitor right hand perfusion and for bleeding from the radial site following removal of the vascular-band following trans-radial access.
2. Continue aggressive medical therapy and risk factor modification for secondary CAD prevention.
3. Given need for lifelong Eliquis due to an unprovoked DVT history, decision was made despite the NSTEMI to load with 600 mg of Plavix. Plan will be to do triple therapy with daily baby aspirin, 75 mg of Plavix and Eliquis which will be started
tonight for 1 week and at that point aspirin can be discontinued with plan to continue Eliquis and Plavix 75 mg daily.
4. Hydrate with normal saline to mitigate the risk of contrast-induced acute kidney injury.
5. Referral for outpatient cardiac rehab.
6. Follow-up with outpatient cardiology after discharge
Dena Vale MD, FACC, [facility]
[2025-06-14 12:59] LABS: Troponin I 1.770 ng/ml
--- NOTE | 2025-06-14 13:16 | CM ---
Reviewed chart. Met with Mr. Walker to review discharge plans. He states he rents a house with roommates. He states he resides in a three story home without any steps to enter. He states his bedroom is on third third floor and he has two flight
of steps to get to his bedroom. He states his full bathroom is on the second floor. He states prior to admission he was independent in ambulation and adls. He states he does not have any DME in the home. He states he has a prescription plan and
uses [facility]. Medical work-up in progress. The discharge plan is to return home with his roommates when medically stable.
[2025-06-14] MEDS: LIPITOR 40 MG PO (18:01)
[2025-06-14] MEDS: ELIQUIS 5 MG PO (20:03)
[2025-06-14] MEDS: REMOVE NICOTINE PATCH 1 PATCH REMOVE (22:26)
--- NOTE | 2025-06-14 23:45 | PTCARENOTE ---
Addendum entered by Pauline Fabian RN 06/15/25 02:37:
Saved VS in work list from dayshi, 1400 on.
Original Note:
Received pt at change of shift resting in bed. SR on tele, HR 60's-80's. pt denies any CP or SOB at this time. R radial site C/D/I, no bleeding or hematoma noted at this time. Educated pt on restrictions with R wrist, verbalizes understanding.
Encouraged pt to call RN w/ any questions/concerns. Call zuleta within reach.
[2025-06-15 04:49] VITALS: BP 146/97
[2025-06-15 06:13] LABS: Blood Urea Nitrogen 11 mg/dl (9-20); Calcium 8.9 mg/dl (8.4-10.2); Carbon Dioxide 24 mmol/L (22-30); Chloride 109 mmol/L (98-107); Estimated Creatinine Clearance > 125 ml/min; Glucose 96 mg/dl (70-99); Potassium 4.2 mmol/L (3.5-5.1); Sodium 137 mmol/L (135-145); eGFR > 60.00
[2025-06-15 07:20] VITALS: BP 159/77
[2025-06-15] MEDS: ELIQUIS 5 MG PO (08:29)
[2025-06-15] MEDS: PLAVIX 75 MG PO (08:29)
[2025-06-15] MEDS: NORVASC 10 MG PO (08:29)
[2025-06-15] MEDS: ZESTRIL 10 MG PO (08:29)
[2025-06-15] MEDS: NICODERM TRANSDERMAL 21 MG TRANSDERM (08:29)
[2025-06-15] MEDS: TOPROL XL 25 MG PO (08:29)
[2025-06-15] MEDS: LOW STRENGTH ASPIRIN 81 MG PO (08:30)
--- NOTE | 2025-06-15 08:46 | W.PN.CARDCBS ---
Addendum entered and electronically signed by Dena Vale MD 06/15/25 23:02:
I saw and examined the patient.
The Family Medicine Physician's note was reviewed and I agree with the note.
Comment: Doing well overnight. No acute issues. No further CP or SOB. No issues at radial access site.
Vitals and labs reviewed. on exam, pt is NAD, A+Ox3, RR, Normal S1 an S2. no m/r/g, CTAB, Abd soft, NT, ND +BS, warm ext.
right radial site with dressing in place, no hematoma or bruit.
Reccomendations:
1. Cont Toprol XL 12.5mg daily with tele showing short runs of NSVT and relative bradycardia.
2. Cont home HTN meds.
3. ASA, plavix and eliquis x 1wk, then plavix and eliquis given NSTEMI and s/p LCX PCI.
4. Echo with overall preserved LC fxn, no significant valve issues.
5. Aggressive secondary CV risk factor management.
6. Outpt cardiac rehab referral if feasible with his work schedule.
7. Outpt cards follow up will be arranged.
8. STOP SMOKING
9. Heart healthy high fiber Mediterranean diet.
Stable for discharge from cardiac standpoint.
Dena Vale MD, [facility], [facility]
Original Note:
Today's Communication / Plan
-
Plan for aspirin, Plavix, Eliquis for 1 week then stop aspirin and continue Plavix, Eliquis
PPI added
Decrease Toprol to 12.5 mg daily given relative bradycardia
Continue outpatient Norvasc, lisinopril
Statin new this admission
Cardiac rehab
Outpatient cardiac follow-up arranged
Ambulate, and if feeling well okay for discharge later today
Impression / Plan
-
Primary Warehouse Administrative Assistant: none prior to admission
Assessment:
Presentation with CP
NSTEMI s/p circ PCI 06/14/25
HTN
History of DVT on eliquis
Smoker
ECHO 06/14/25: EF 58%, aortic sclerosis, moderate MAC, mild MR
Plan:
-Patient presented with several days of chest discomfort. ruled in for NSTEMI
-peak trop 2.2
-s/p cath with circ PCI 06/14/25
-R wrist site c/d/i
-currently on triple therapy with asa, plavix, eliquis. plan to continue for 1 week then stop asa and continue plavix, eliquis
-in SR/SB on review of tele overnight, will reduce Toprol dose to 12.5 mg daily
-Continue outpatient Norvasc, lisinopril
-Results of echocardiogram reviewed with patient 06/14
-LDL 135. Lipitor 40 mg every afternoon added this admission
-Activity restrictions reviewed
-Again discussed importance of smoking cessation
-Cardiac rehab
-Okay for discharge to home later today
-Outpatient cardiac follow-up arranged
Progress Note - Warehouse Administrative Assistant
Subjective
Date of Service: June 15, 2025
No issues overnight. Mild right wrist soreness
Objective
Labs:
06/14/25 07:45
06/15/25 04:58
Labs
Hgb 13.6 g/dL (13.0-18.0) 06/14/25 07:45
Hct 40.2 % (39.0-52.0) 06/14/25 07:45
Plt Count 196 10^3/uL (130-400) 06/14/25 07:45
PT 13.5 Sec (11.4-14.6) 06/13/25 19:01
INR 1.02 06/13/25 19:01
APTT Cancelled 06/14/25 14:30
Sodium 137 mmol/L (135-145) 06/15/25 04:58
Potassium 4.2 mmol/L (3.5-5.1) 06/15/25 04:58
BUN 11 mg/dl (9-20) 06/15/25 04:58
Creatinine 0.7 mg/dL (0.7-1.3) 06/15/25 04:58
Glucose 96 mg/dl (70-99) 06/15/25 04:58
Troponins
06/13/25 06/13/25 06/14/25
18:02 22:00 00:53
Troponin I 0.412 H* Cancelled 2.070 H* D
06/14/25 06/14/25 06/14/25
07:45 12:00 18:00
Troponin I 2.210 H* 1.770 H* Cancelled
Vital Signs and I&O:
Vital Signs
Temp Pulse Resp BP Pulse Ox
97.8 F 75 20 159/77 97
06/15/25 07:20 06/15/25 08:29 06/15/25 07:20 06/15/25 08:29 06/15/25 07:20
Vital Signs
Temp Pulse Resp BP Pulse Ox
97.8 F 75 20 159/77 97
06/15/25 07:20 06/15/25 08:29 06/15/25 07:20 06/15/25 08:29 06/15/25 07:20
Intake & Output
06/13/25 06/14/25 06/15/25 06/16/25
07:59 07:59 07:59 07:59
Intake Total 240 / 240 720 / 720
Output Total 1100 / 1100
Balance 240 / 240 -380 / -380
Physical Exam
Physical Exam
GEN: No distress, awake, alert, oriented x3
HEENT: supple, anicteric, mmm, EOMI
LUNGS: CTA bilaterally, no wheezes/rales
CV: Reg, S1/S2, 1/6 murmur
ABD: soft, BS+, NT/ND
EXT: No cyanosis, clubbing, edema
NEURO: Gross non-focal
SKIN: Warm, pink, dry. No rash. Right wrist site clean dry and intact
--- NOTE | 2025-06-15 09:03 | W.PN.HOSP.TC ---
Today's Communication/Plan
-
dc if ok with cardiology
Assessment / Plan
Assessment / Plan
Physical Exam
General: Comfortable and Conversant
HEENT: Anicteric and Moist mucous membranes
Respiratory: Clear and Non Labored Respirations
Cardiac: S1/S2 and Regular Rhythm
GI: Soft and Non Distended
Rectal: Deferred by Provider
Musculoskeletal: No Clubbing, No Cyanosis and No Edema
Skin: Warm and Dry
Neuro: Awake, Alert, Oriented and Nonfocal/grossly intact
Psych: Calm
NSTEMI
No chest pain over night
s/p percutaneous coronary artery intervention of a 90% hazy mid left circumflex stenosis with one 3.0 x 18 mm Medtronic Robbins frontier drug-eluting stent by Dr Vale on 06/14 through right wrist, no complications reported.
-Patient received aspirin 324mg in ED - Continue 81mg Daily & Plavix. EKG no acute ischemic changes.
-s/p heparin drip
- s/p nitro drip
- LDL 135/ HDL 42/ Total cholesterol 197/ TG 101,
Started on statin therapy
- HgbA1c pending.
- Appreciate cardiology help, ok to discharge.
Essential Hypertension, BP uncontrolled
Leukocytosis, no fever or cough
CXR: No evidence of active cardiopulmonary disease.
c/w reactive
Hx DVT
-Patient reports lower extremity DVT 2 years ago which he reports was unprovoked
-Hold Eliquis while on heparin drip
Tobacco Use Disorder / Nicotine Dependence
-Continue nicotine patch
-Encourage smoking cessation
Code Status: Full Code
Total discharge time spent to see the patient, examined the patient, reviewed data and lab result, discuss discharge plan with patient, cardiology, nursing staff around 67 minutes
Anticipated Discharge: Today
Subjective/Interval History
-
Date of Service: June 15, 2025
No chest pain
No fevers
Slept well
Objective Data
-
Labs:
Laboratory Results
06/15/25
04:58
Sodium 137
Potassium 4.2
Chloride 109 H
Carbon Dioxide 24
BUN 11
Creatinine 0.7
Glucose 96
Calcium 8.9
Vital Signs:
Vital Signs
Temp Pulse Resp BP Pulse Ox
97.8 F 75 20 159/77 97
06/15/25 07:20 06/15/25 08:29 06/15/25 07:20 06/15/25 08:29 06/15/25 07:20
I&O
06/14/25 06/15/25 06/16/25
06:59 06:59 06:59
Intake Total 240 / 240 720 / 720
Output Total 1100 / 1100
Balance 240 / 240 -380 / -380
[2025-06-15 09:44] LABS: Glycohemoglobin (HgbA1c) 5.6 % (4.0-5.9)
[2025-06-15] MEDS: PROTONIX 40 MG PO (09:55)
--- NOTE | 2025-06-15 11:25 | CM ---
Reviewed chart. Met with Mr. Walker to review discharge plans. He states he is feeling well and maybe able to go home. We reviewed VNA Services and at this time he is declining VNA Services. He sttaes he has been having ongoing issues with his
landlord and he does not know how long he will be able to stay there, but his plan is to return back to his boarding home. He rents a house with roommates. He resides in a three story home without any steps to enter. His bedroom is on third third
floor and he has two flight of steps to get to his bedroom. His full bathroom is on the second floor. Prior to admission he was independent in ambulation and adls. He does not have any DME in the home. He has a prescription plan and uses [facility]. Medical work-up in progress. The discharge plan is to return home with his roommates when medically stable.
[2025-06-15 11:43] VITALS: BP 117/84
--- NOTE | 2025-06-15 13:02 | PTCARENOTE ---
~[id number]: Handoff report received from nightshift RN. Pt AOx4, SB/NSR 50s-90s on tele, SBP 150s, RA satting 97%. Pt denies pain at this time. R radial puncture site soft and dressing CDI. Independent in room. Patient ambulated back from bathroom
after changing and HR was ST 140s. Patient asymtpomatic at the time and quickly returned to baseline once sitting. Sherry Palmer PA-C made aware, no new orders at this time. All needs met, call zuleta within reach.
~[id number]: Patient independent in room. VSS, SB/NSR 40s-70s. Pt denies pain. DC orders in. IV and tele pack removed. Patient dressed independently. DC paperowork reviewed with patient, all questions answered and patient verbalized understanding.
All belongins left with patient and patient ambulated to car in stabl condition. Patient drove himself home, clearf by cardiology to do so since after 24 hours from CCL.
--- NOTE | 2025-06-15 15:05 | W.DCSUMMARY ---
Discharge Summary
Discharge Data
Date of Admission: 06/13/25
Date of Discharge: 06/15/25
-
Pending Results: No
Hospital Course
48 years old male presented to the emergency department for evaluation of chest pain for 5 days. He had a pressure pain similar to indigestion in the central chest that worsened with exertion, resolved by rest. No obvious positional or pleuritic
nature. No fevers, chills, sweats, coughing. He reported smoking 2 packs/day, denied alcohol and substance abuse. Patient was found to have elevated troponin up to 2. He was evaluated by flight manager. Patient was diagnosed with non-ST elevation
[place]. Echocardiogram showed left ventricular ejection fraction around 58% with no wall motion abnormality. He underwent left heart catheterization with successful stenting of mid left circumflex by Dr. Vale on 06/14, no complications reported.
Patient was counseled to quit smoking, he verbalized understanding. He was advised to continue aspirin, Plavix, Eliquis for 1 week then continue with Plavix and Eliquis after that. Patient remained hemodynamically stable. He was able to ambulate
without chest discomfort or hypoxia. He was evaluated by ed case manager and discharged in stable condition
Discharge Plan
-
Patient Disposition: Home (Routine Discharge)
Discharge Diagnosis/Procedures: You were admitted for none ST elevation myocardial infarction (heart attack ) you had left heart catheterization with angioplasty and stent to Left Circumflex artery.
You were followed by flight manager.
New medications added
Aspirin for 7 days, potential side effects include bleeding, bruising
Plavix, potential side effects include bleeding, bruising
Toprol-XL, beta-moody, potential side effects include bradycardia, hypotension, fatigue
Lipitor, cholesterol, statin therapy, potential side effects include fatigue, myopathy, elevated liver enzyme, myositis
You will need to follow-up with your primary care doctor within a week and do blood work with your primary including, CBC, CMP, liver enzyme, (CPK )-muscle enzyme. You will need to follow-up with flight manager for further management and monitoring
of blood work.
- Avoid smoking, you are given nicotine patch.
Diet: Low Cholesterol
Driving Restrictions: No driving for 24 hours
Other Services: Cardiac Rehab
Stand Alone Forms: DC Instructions- Cath/EP Lab
Referrals:
Hilaria Medley PA-C [Specified Professional Personl, Cardiology] - 07/03/25 9:20 am
Christina Granda MD [Family Provider, [facility]] - in one week
Additional Discharge Medication Instructions: You will take aspirin 81mg daily, plavix 75mg daily, and eliquis 5mg twice a day for 1 week. Then STOP aspirin, and remain on plavix/eliquis.
Prescriptions:
New
nicotine 21 mg/24 hr Patch 24 Hour
21 mg transdermal DAILY Qty: 28 0RF
aspirin 81 mg Tablet,Chewable
81 mg PO DAILY Qty: 7 0RF
atorvastatin 40 mg Tablet
40 mg PO QPM Qty: 30 0RF
clopidogrel 75 mg Tablet
75 mg PO DAILY Qty: 30 0RF
metoprolol succinate 25 mg Tablet Extended Release 24 Hr
12.5 mg PO DAILY Qty: 30 0RF
Continued
amlodipine 10 mg Tablet
10 mg PO DAILY
lisinopril 10 mg Tablet
10 mg PO DAILY
Eliquis 5 mg Tablet
5 mg PO BID
Discharge Orders:
Discharge Patient (As Directed); Ordered 06/15/25
Ordered By: Becky Martin
Care Plan Goals
Care Plan Goals:
Problem: Readiness for enhanced knowledge related to diagnosis and treatment plan
Goal: Understand your diagnosis and treatment plan needs, including medications if applicable.
Instructions: Know your diagnosis, underlying causes and treatment plan options, including medications if applicable. Consult with your health care team to learn about your diagnosis and treatment plan, including medications if applicable.
Discharge Date and Time
Discharge Date/Time: 06/15/25 13:00
Print Language: ESTONIAN
== END 2025-06-15 13:00 | disposition home or self-care (01) | DRG 322 ==
LOC: IVU 19:52
PROVIDERS: Internal Medicine Cardiovascular Disease; Nurse Practitioner; Physician Assistant; Physician Assistant Medical; ADMITTING PHYSICIAN Hospitalist; ATTENDING PHYSICIAN Internal Medicine; EMERGENCY PHYSICIAN Emergency Medicine; FAMILY PHYSICIAN Student in an Organized Health Care Education/Training Program; OTHER PHYSICIAN Internal Medicine Interventional Cardiology
PROC: 4A023N7 Measurement of Cardiac Sampling and Pressure, Left Heart, Percutaneous Approach (ICD-10-PCS; 2025-06-14)
PROC: B240ZZ3 Ultrasonography of Single Coronary Artery, Intravascular (ICD-10-PCS; 2025-06-14)
PROC: B2111ZZ Fluoroscopy of Multiple Coronary Arteries using Low Osmolar Contrast (ICD-10-PCS; 2025-06-14)
PROC: 027034Z Dilation of Coronary Artery, One Artery with Drug-eluting Intraluminal Device, Percutaneous Approach (ICD-10-PCS; 2025-06-14)
DX: I21.4 Non-ST elevation (NSTEMI) myocardial infarction (principal); I10 Essential (primary) hypertension; F17.210 Nicotine dependence, cigarettes, uncomplicated; I25.10 Atherosclerotic heart disease of native coronary artery without angina pectoris; D72.829 Elevated white blood cell count, unspecified; Z79.01 Long term (current) use of anticoagulants; Z86.718 Personal history of other venous thrombosis and embolism; Z79.82 Long term (current) use of aspirin; Z79.899 Other long term (current) drug therapy; Z88.0 Allergy status to penicillin
CPT/HCPCS: 71046; 80048; 80053; 80061; 83036; 84484; 85025; 85027; 85347; 85610; 85730; 92978; 93005; 93306; 93458; 96365; 96367; 99152; 99153; 99291; 99406; C1725; C1769; C1874; C9600; Q9967

== ENCOUNTER 2025-06-22 14:55 | Emergency (ER) | payer OTHER, SELFPAY ==
[2025-06-22 14:58] VITALS: BP 152/78
[2025-06-22 15:31] LABS: Hematocrit 42.6 % (39.0-52.0); Hemoglobin 14.4 g/dL (13.0-18.0); Mean Corp Hgb Conc. 33.8 g/dL (33.0-37.0); Mean Corpuscular Volume 91.6 fL (80.0-94.0); Nucleated Red Blood Cells % 0 % (-); Platelet Count 262 10^3/uL (130-400); Red Cell Dist. Width 13.1 % (11.5-14.5)
[2025-06-22 15:45] LABS: ALT (SGPT) 17 U/L (0-50); AST (SGOT) 18 U/L (17-59); Albumin 4.5 g/dl (3.5-5.0); Alkaline Phosphatase 75 U/L (38-126); Blood Urea Nitrogen 16 mg/dl (9-20); Calcium 9.9 mg/dl (8.4-10.2); Carbon Dioxide 25 mmol/L (22-30); Chloride 107 mmol/L (98-107); Glucose 93 mg/dl (70-99); Potassium 4.4 mmol/L (3.5-5.1); Sodium 138 mmol/L (135-145); Total Protein 7.7 g/dl (6.3-8.2); eGFR > 60.00
[2025-06-22 15:55] LABS: Troponin I < 0.012 ng/ml
--- NOTE | 2025-06-22 16:52 | ED.GENMED ---
History of Present Illness
General
Chief Complaint: Chest Pain
Time Seen by Provider: 06/22/25 16:45
History of Present Illness
History of Present Illness:
49-year-old male with recent history of NSTEMI status post ADITI x 1 presents to the emergency department for evaluation of left-sided chest pain that began shortly after leaving the hospital and worsening since onset. Worse when taking deep breath
or when pushing on the area. Denies any fevers or chills. Denies any worsening when lying flat. Not comparable to his NE pain
Past History
Past History
ED Past Medical History: None
ED Past Surgical History: None
Social History
Tobacco: Smoker (1 ppd, past 20 years)
Alcohol: None
Drug: None
Employment: Employed
Review of Systems
Review of Systems
Allergies reviewed?: Yes
All Other Systems: ROS reviewed and negative except as documented in HPI and ROS
Phy Exam
Physical Exam
Physical Exam:
GEN: Well appearing, NAD, WDWN
HEENT: Oral mucosa moist, no scleral icterus
Cardiac: Regular rate and rhythm, no murmur
Lung: No respiratory distress, no tachypnea. Reproducible tenderness along the left chest wall with no visible abnormalities, no vesicular skin lesions
MSK: No gross deformity or injuries
Skin: Good color, no pallor or jaundice, no rashes
Neuro: AO x3, moves all extremities freely
Psych: Calm, cooperative
Scores
Heart Score for Chest Pain Patients
STEMI patient?: No
History: Slightly or Non-Suspicious
ECG: Normal
Age: >45 - <65 years
Risk Factors: >/= 3 Risk Factors or History of CAD
Troponin: </= Normal Limit
Heart Score for Chest Pain Patients: 3
Heart Score Risk: 2.5% MACE over next 6 weeks
Course
Orders/Labs/Results
Orders:
Orders
06/22/25 15:01
Electrocardiogram (*1) Urgent
Reason for Study: Chest Pain
06/22/25 15:02
EKG- Treatment ONCE
06/22/25 15:11
BNP [NT-proBNP] Urgent
Complete Blood Count/With Diff Urgent
Comprehensive Metabolic Panel Urgent
Troponin I Urgent
06/22/25 16:51
CR Chest - 2 Views Urgent
Comment:
Reason For Exam: L chest pain post cardiac cath
Abnormal Lab Results
06/22/25
15:11
RBC 4.65 L 10^6/uL
(4.70-6.10)
MPV 10.6 H fL
(7.4-10.4)
06/22/25 15:11
06/22/25 15:11
Vital Signs
Initial and Last Documented VS:
Initial Vital Signs
Temp Pulse Resp BP Pulse Ox
98.4 F 80 18 152/78 99
06/22/25 14:58 06/22/25 14:58 06/22/25 14:58 06/22/25 14:58 06/22/25 14:58
Last Documented Vital Signs
Temp Pulse Resp BP Pulse Ox
98.4 F 56 17 142/83 99
06/22/25 14:58 06/22/25 18:05 06/22/25 18:10 06/22/25 18:04 06/22/25 16:53
MDM/Problems Addressed
MDM/Problems Addressed:
Patient's pain is not positional and is clearly reproducible. He has no visible lesions to the thoracic back or chest to suggest acute herpes zoster. He has no positional symptoms concerning for pericarditis and no pleuritic symptoms. Chest x-ray
without effusion. Likely musculoskeletal etiology, treatment options limited given his current antiplatelet and anticoagulant therapy however topical analgesics would be appropriate
Comment
Comment:
EKG independently interpreted by me shows normal sinus rhythm at a rate of [address] changes
*Pulse Oximetry
SaO2: 99
Oxygen Mode of Delivery: Room air
Patient hypoxic: no
*Critical Care Note
Total Time (30-74mins, 75-104mins- exclusive of procedures): Not Applicable
ED Attending Note
-
Portions of this chart may have been created with voice recognition software.� Occasional wrong word or��sound alike� substitutions may have occurred due to the inherent limitations of voice recognition software.
Discharge Plan
Departure
Patient Disposition: Home (Routine Discharge)
Date of Disposition: 06/22/25
Time of Disposition: 18:27
Patient with high blood pressure during this ER visit?: No
Discharge Problem:
Atypical chest pain
Instructions: Chest Pain That Is Not Caused by the Heart (DC)
Prescriptions:
No Action
amlodipine 10 mg Tablet
10 mg PO DAILY
lisinopril 10 mg Tablet
10 mg PO DAILY
Eliquis 5 mg Tablet
5 mg PO BID
nicotine 21 mg/24 hr Patch 24 Hour
21 mg transdermal DAILY Qty: 28 0RF
aspirin 81 mg Tablet,Chewable
81 mg PO DAILY Qty: 7 0RF
atorvastatin 40 mg Tablet
40 mg PO QPM Qty: 30 0RF
clopidogrel 75 mg Tablet
75 mg PO DAILY Qty: 30 0RF
metoprolol succinate 25 mg Tablet Extended Release 24 Hr
12.5 mg PO DAILY Qty: 30 0RF
Referrals:
León Boggs Jr., DO [Family Provider, Family Practice]
Interventions
Interventions:
*General Assessment Last Done: 06/22/25 18:20
*Neglect/Abuse Screening Last Done: 06/22/25 18:20
*ED COVID-19 Vaccine History Last Done: 06/22/25 18:20
[facility] Risk Assessment Tool Last Done: 06/22/25 18:11
*Risk Screen - Suicide (C-SSRS) Last Done: 06/22/25 14:58
*Nursing Disposition Last Done: 06/22/25 18:50
ED- Cardiac Assessment Last Done: 06/22/25 18:18
Discharge Date and Time
Discharge Date/Time: 06/22/25 18:20
Print Language: [place]
[2025-06-22 18:04] VITALS: BP 142/83
--- NOTE | 2025-06-22 18:54 | PTCARENOTE ---
This RN did not see or assess this pt. this RN is just documenting the discharge completed by primary JAYLENE Rocha after learning pt has left the department. JAYLENE Rocha reports removing piv prior to departure.
== END 2025-06-22 18:20 | disposition home or self-care (01) ==
LOC: EMR 14:55
PROVIDERS: Student in an Organized Health Care Education/Training Program; EMERGENCY PHYSICIAN Emergency Medicine; FAMILY PHYSICIAN Family Medicine
DX: R07.89 Other chest pain (principal); F17.210 Nicotine dependence, cigarettes, uncomplicated; I25.2 Old myocardial infarction; Z95.5 Presence of coronary angioplasty implant and graft
CPT/HCPCS: 99285; 71046; 80053; 83880; 84484; 85025; 93005